=== PATIENT | male | born 1990 | race Caucasian/White ===

== ENCOUNTER 2017-08-26 21:34 | Emergency (ER) | payer OTHER ==
[~2017-08-26] VITALS: Ht 167.6 cm; Wt 81.6 kg
[2017-08-26 21:36] VITALS: BP_SYST 140
--- NOTE | 2017-08-26 21:36 | NUR ---
Patient triaged and placed in waiting room. VSS and patient appears in no acute distress at this time. Awaiting available bed, and MD notified of need for MSE.
--- NOTE | 2017-08-26 23:44 | NUR ---
Placed in room 06 . Placed on cardiac surgeon, blood pressure machine and pulse oximeter. To gown for exam. Side rails up. Report given to ADELFO Reed.
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
--- NOTE | 2017-08-27 00:40 | NUR ---
ER Dr. Alcantara at bedside examining patient.
[2017-08-27 01:31] VITALS: BP_SYST 134
--- NOTE | 2017-08-27 01:31 | NUR ---
Patient given written and verbal discharge instructions and verbalizes understanding. ER MD discussed with patient the results and treatment provided. Patient in stable condition. ID arm band removed. Patient educated on pain management and to follow up with PMD. Pain Scale 0/10. Opportunity for questions provided and answered.
[2017-08-27] MEDS ORDERED: IPRATROPIUM/ALBUTEROL SULFATE 3 ML AMPUL.NEB ONE (01:39)
== END 2017-08-27 01:31 | disposition home or self-care (01) ==
LOC: SED 21:34
DX: F41.9 Anxiety disorder, unspecified (principal)
CPT/HCPCS: 71045; 93005; 99284